=== PATIENT | male | born 1985 | race Two or more races ===

== ENCOUNTER 2018-01-09 09:23 | Day surgery (SDC) | payer OTHER, MEDICAID ==
[2018-01-09] MEDS ORDERED: oxyCODONE 5 MG TABLET PO STA (10:21)
--- NOTE | 2018-01-09 10:30 | ED Physician Documentation ---
History of Present Illness - Stated complaint Stated Complaint: GROIN PX - Chief complaint Chief Complaint: Abd Pain - Additonal information Additional information: hx from pt 32 male developed L groin pain a year ago with lifting got better then re-aagrevated lifting a few days ago pain and swelling to L inguinal and scrotal region, he cannot reduce the swelling which he used to be able to do, the pain is severe no fever no NV is having BM no diff with urination no numbness or weakness ate coffee and cookies for breakfast this AM Review of Systems Constitutional: denies: Fever Cardiac: denies: Chest pain / pressure Respiratory: denies: Dyspnea GI: denies: Abdominal Pain, Nausea, Vomiting, Constipation, Diarrhea : reports: Other (inguinal scrotal pain) Endocrine: denies: Easy bruising / bleeding Immunocompromised: denies: Immunocompromised PD PAST MEDICAL HISTORY - Allergies Allergies/Adverse Reactions: Allergies Allergy/AdvReac Type Severity Reaction Status Date / Time No Known Drug Allergies Allergy Verified 01/09/18 09:39 PD ED PE NORMAL - Vitals Vital signs reviewed: Yes - General General: Other (uncomfortable) - Neck Neck: Supple, no meningeal sign - Cardiac Cardiac: RRR - Respiratory Respiratory: No respiratory distress - Abdomen Abdomen: Soft, Non tender, Other (no pulsatile mass) - Male Male : Other (L inguinal swelling extending into scrotum c/w inguinal hernia, unanle to reduce, very painful) - Derm Derm: Normal color Results - Vitals Vitals: Vital Signs - 24 hr 01/09/18 01/09/18 01/09/18 09:35 12:15 13:09 Temperature 36.2 C L 36.5 C Heart Rate 88 74 64 Respiratory 16 18 18 Rate Blood Pressure 143/73 H 138/74 H 107/66 O2 Saturation 100 100 98 01/09/18 01/09/18 01/09/18 16:47 16:49 16:54 Temperature 37.7 C H Heart Rate 86 84 85 Respiratory 13 15 15 Rate Blood Pressure 105/76 124/67 121/67 O2 Saturation 96 99 96 01/09/18 01/09/18 01/09/18 16:59 17:03 17:08 Temperature 37.5 C Heart Rate 84 81 96 Respiratory 15 14 16 Rate Blood Pressure 126/68 121/73 125/78 O2 Saturation 97 98 98 01/09/18 01/09/18 01/09/18 17:14 17:19 17:24 Temperature Heart Rate 88 76 82 Respiratory 16 15 13 Rate Blood Pressure 129/73 118/72 126/71 O2 Saturation 95 95 95 01/09/18 01/09/18 01/09/18 17:34 17:42 17:49 Temperature 37 C Heart Rate 83 85 80 Respiratory 14 16 16 Rate Blood Pressure 124/74 124/77 132/81 H O2 Saturation 94 98 95 01/09/18 18:01 Temperature Heart Rate 85 Respiratory 14 Rate Blood Pressure 124/89 H O2 Saturation 96 Oxygen O2 Source Room air - Labs Labs: Laboratory Tests 01/09/18 01/09/18 12:02 12:02 WBC 12.5 H RBC 5.51 Hgb 15.5 Hct 45.2 MCV 82.0 MCH 28.2 MCHC 34.4 RDW 13.9 Plt Count 188 MPV 9.0 Neut # (Auto) 8.4 H Lymph # (Auto) 2.7 Garrett # (Auto) 1.2 H Eos # (Auto) 0.2 Baso # (Auto) 0.0 Absolute Nucleated RBC 0.00 Nucleated RBC % 0.0 Sodium 138 Potassium 3.5 Chloride 103 Carbon Dioxide 25 Anion Gap 10.0 BUN 18 Creatinine 0.7 Estimated GFR (MDRD) 132 Glucose 92 Calcium 9.0 PD MEDICAL DECISION MAKING - ED course ED course: even after pain meds unable to fully reduce (out of scrotum but still inguinal pain and swelling) = incarerated hernia spoke to miko Sales approx 1130 is in OR came to see pt approx 1230 and will take to OR today - Sepsis Event Vital Signs: Vital Signs - 24 hr 01/09/18 01/09/18 01/09/18 09:35 12:15 13:09 Temperature 36.2 C L 36.5 C Heart Rate 88 74 64 Respiratory 16 18 18 Rate Blood Pressure 143/73 H 138/74 H 107/66 O2 Saturation 100 100 98 01/09/18 01/09/18 01/09/18 16:47 16:49 16:54 Temperature 37.7 C H Heart Rate 86 84 85 Respiratory 13 15 15 Rate Blood Pressure 105/76 124/67 121/67 O2 Saturation 96 99 96 01/09/18 01/09/18 01/09/18 16:59 17:03 17:08 Temperature 37.5 C Heart Rate 84 81 96 Respiratory 15 14 16 Rate Blood Pressure 126/68 121/73 125/78 O2 Saturation 97 98 98 01/09/1818 01/09/18 17:14 17:19 17:24 Temperature Heart Rate 88 76 82 Respiratory 16 15 13 Rate Blood Pressure 129/73 118/72 126/71 O2 Saturation 95 95 95 01/09/18 01/09/18 01/09/18 17:34 17:42 17:49 Temperature 37 C Heart Rate 83 85 80 Respiratory 14 16 16 Rate Blood Pressure 124/74 124/77 132/81 H O2 Saturation 94 98 95 01/09/18 18:01 Temperature Heart Rate 85 Respiratory 14 Rate Blood Pressure 124/89 H O2 Saturation 96 Oxygen O2 Source Room air Departure - Departure Disposition: ED Transfer to [facility] Clinical Impression: Incarcerated inguinal hernia Condition: Good Discharge Date/Time: 01/09/18 14:32
[2018-01-09] MEDS ORDERED: SODIUM CHLORIDE 0.9% 1,000 ML IV ONE (11:18)
[2018-01-09] MEDS ORDERED: ACETAMINOPHEN 1,000 MG/100 ML 100 ML IV STA (11:18)
[2018-01-09 12:12] LABS: BASOPHILS % (AUTO) 0.3 %; EOSINOPHILS # (AUTO) 0.2 10^3/uL (0.0-0.7); EOSINOPHILS % (AUTO) 1.9 %; HGB - HEMOGLOBIN 15.5 g/dL (14.0-18.0); LYMPHOCYTES # (AUTO) 2.7 10^3/uL (1.5-3.5); LYMPHOCYTES % (AUTO) 21.7 %; MEAN CORPUSCULAR HEMOGLOBIN 28.2 pg (27.0-31.0); MEAN CORPUSCULAR HGB CONC 34.4 g/dL (32.0-36.0); MONOCYTES # (AUTO) 1.2 10^3/uL (0.0-1.0); MONOCYTES % (AUTO) 9.2 %; NEUTROPHILS # (AUTO) 8.4 10^3/uL (1.5-6.6); NEUTROPHILS % (AUTO) 66.9 %; PLT - PLATELET COUNT 188 10^3/uL (130-450); RED BLOOD COUNT 5.51 10^6/uL (4.70-6.10); RED CELL DISTRIBUTION WIDTH 13.9 % (12.0-15.0); WHITE BLOOD COUNT 12.5 x10^3/uL (4.8-10.8)
[2018-01-09 12:17] LABS: CREATININE 0.7 mg/dL (0.6-1.2)
--- NOTE | 2018-01-09 12:35 | CONSULTATION NOTE ---
Referring Provider Name of Referring Provider:: Dr. Solomon Consult Date: 01/09/18 Chief Complaint - Chief Complaint Chief Complaint: left groin pain History of Present Illness - Admitted From Admitted From:: ER - History Obtained From Records Reviewed: yes History obtained from: pt, Exam Limitations: pt has limited Czech skills - History of Present Illness HPI Comment/Other: 32 yo male with 48 hour hx of progressively worsening left groin pain without associated N/V, fever/chills, change in bowel habits or urination. Because of worsening pain, he presented to the ER today. Hx milder similar sx one week ago while lifting heavy pots at work, and also 1 yr ago performing the same activity at work. No sx on right; no PH or FH of hernias. No recent wt changes, no melena/BRBPR. History - Past Medical History Cardiovascular: reports: None Respiratory: reports: None Endocrine/Autoimmune: reports: None GI: reports: None : reports: None Psych: reports: None Musculoskeletal: reports: None MRSA Hx?: No - Family & Social History Family History Comment/Other: neg for hernias Living arrangement: At home Living Situation: With family - Substance History Use: Uses substance without health or social issues: NONE Abuse: Recurrent use of substance despite neg consequences: NONE Dependence: Experiences withdrawal or developed tolerances: NONE - POLST Patient has POLST: No POLST Status: Full Code Meds/Allgy - Allergies Allergies/Adverse Reactions: Allergies Allergy/AdvReac Type Severity Reaction Status Date / Time No Known Drug Allergies Allergy Verified 01/09/18 09:39 Review of Systems - Constitutional Constitutional: denies: Fever, Chills, Weight gain, Weight loss - Cardiovascular Cariovascular: denies: Chest pain - Respiratory Respiratory: denies: Cough, Sputum production, Wheezing - Gastrointestinal Gastrointestinal: denies: Abdominal pain, Constipation, Diarrhea, Change in bowel habits, Rectal bleeding, Black stools, Bloody stools, Nausea, Vomiting, Coffee grounds emesis - Genitourinary Genitourinary: denies: Dysuria, Frequency, Urgency, Hematuria - Hematologic/Lymphatic Hematologic/Lymphatic: denies: Bruising, Bleeding tendencies - All Other Systems All Other Systems: reports: Reviewed and negative Exam - Vital Signs Reviewed Vital Signs: Yes Vital Signs: Vital Signs x48h Temp Pulse Resp BP Pulse Ox 01/09/18 12:15 74 18 138/74 H 100 01/09/18 09:35 36.2 C L 88 16 143/73 H 100 - Physical Exam General Appearance: positive: Alert, Moderate distress Eyes Bilateral: positive: Conjunctivae nml, No scleral icterus ENT: positive: Pharynx nml, No signs of dehydration. negative: Pharyngeal erythema Neck: positive: Nml inspection, No JVD, Trachea midline. negative: Lymphadenopathy (R), Lymphadenopathy (L) Respiratory: positive: Chest non-tender, No respiratory distress, Breath sounds nml. negative: Wheezes, Rales, Rhonchi Cardiovascular: positive: Regular rate & rhythm, No murmur, No gallop Peripheral Pulses: positive: 2+ Abdomen: positive: Non-tender, No organomegaly, Nml bowel sounds, No distention. negative: Mass Skin: positive: Color nml, No rash, Warm, Dry Extremities: positive: Non-tender, Nml appearance, No pedal edema. negative: Calf tenderness Neurologic/Psychiatric: positive: Oriented x3 Comments/Other: GENIT: nl male phallus; no scrotal masses; left groin mass, exquisitely tender, partially reducible; no evidence of hernia on the right. Conclusion/Plan - Diagnosis Diagnosis: Incarcerated left inguinal hernia; no clinical evidence of strangulation or bowel obstruction. - Plan Plan: To OR for repair today. PAR conference with patient, discussed alternatives (observation) and risks (bleeding, infection, recurrence), consent obtained. - Lab Results Fish Bones: 01/09/18 12:02 01/09/18 12:02
--- NOTE | 2018-01-09 12:36 | ANESTHESIA ---
Pre-Anesthesia VS, & Labs - Diagnosis Incarcerated inguinal hernia, left - Procedure Left incarcerated inguinal hernia repair Vital Signs: Temp Pulse Resp BP Pulse Ox 36.2 C L 74 18 138/74 H 100 01/09/18 09:35 01/09/18 12:15 01/09/18 12:15 01/09/18 12:15 01/09/18 12:15 Height 5 ft 7 in Weight (kg) 88.904 kg Body Mass Index 30.7 - NPO Other (Coffee, cookie at 0730) - Lab Results Lab results reviewed: Yes Fish Bones: 01/09/18 12:02 01/09/18 12:02 Home Medications and Allergies Allergies/Adverse Reactions: Allergies Allergy/AdvReac Type Severity Reaction Status Date / Time No Known Drug Allergies Allergy Verified 01/09/18 09:39 Anes History & Medical History - Anesthetic History Anesthesia Complications: reports: No previous complications Family history of Anesthesia Complications: Denies Family history of Malignant Hyperthermia: Denies - Medical History Cardiovascular: reports: None Pulmonary: reports: None Gastrointestinal: reports: None Urinary: reports: None Neuro: reports: None Musculoskeletal: reports: None Endocrine/Autoimmune: reports: None Blood Disorders: reports: None Skin: reports: None Smoking Status: Never smoker Psychosocial: reports: No issues indicated Exam General: Alert, Oriented x3 Dental: WNL Mouth Opening: Greater than 4 Fingerbreadths Neck Mobility: Normal Mallampati classification: II Thyromental Distance: greater than 6 cm Respiratory: Lungs clear Cardiovascular: Regular rate Neurological: Normal speech Mental/Cognitive Status: Alert/Oriented X3 Cognitive Status: Within normal limits Plan Anesthesia Type: General Consent for Procedure(s) Verified and Reviewed: Yes Code Status: Attempt Resuscitation ASA classification: 1-Healthy patient Is this case an emergency?: Yes
[2018-01-09] MEDS ORDERED: BUPIVACAINE 0.5%-EPI 1:200000 PF 30 ML VIAL ONE (14:15)
[2018-01-09] MEDS ORDERED: SODIUM CHLORIDE 0.9% 10 ML VIAL IV ONE (14:30)
[2018-01-09] MEDS ORDERED: MIDAZOLAM 2 MG/2 ML VIAL IVP ONE (14:30)
[2018-01-09] MEDS ORDERED: PROPOFOL 200 MG/20 ML VIAL IVP ONE (14:30)
[2018-01-09] MEDS ORDERED: LIDOCAINE-MPF 2% 5 ML VIAL IM ONE (14:30)
[2018-01-09] MEDS ORDERED: fentaNYL 100 MCG/2 ML VIAL IVP ONE (14:30)
[2018-01-09] MEDS ORDERED: KETOROLAC 30 MG/ML VIAL IVP ONE (14:30)
[2018-01-09] MEDS ORDERED: ONDANSETRON 4 MG/2 ML VIAL IVP ONE (14:30)
[2018-01-09] MEDS ORDERED: DEXAMETHASONE 4 MG/ML VIAL IVP ONE (14:30)
[2018-01-09] MEDS ORDERED: ceFAZolin 1 GM VIAL IV ONE (14:30)
[2018-01-09] MEDS ORDERED: BUPIVACAINE 0.5%-EPI 1:200000 PF 30 ML VIAL SUBQ ONE (15:01)
[2018-01-09] MEDS ORDERED: LACTATED RINGERS 1,000 ML IV ONE ×2 (16:47→17:27)
[2018-01-09 18:03] VITALS: BP 124/89
[2018-01-09] MEDS ORDERED: oxyCODONE 5 MG TABLET PO PRN (18:03)
[2018-01-09] MEDS ORDERED: ONDANSETRON 4 MG/2 ML VIAL IVP PRN (18:04)
[2018-01-09] MEDS ORDERED: LACTATED RINGERS 1,000 ML IV SCH (19:00)
--- NOTE | 2018-01-10 05:45 | OPERATIVE REPORT ---
DATE OF SERVICE: 01/09/2018 Physician: Ricardo Sales MD PREOPERATIVE DIAGNOSIS: Incarcerated left inguinal hernia. POSTOPERATIVE DIAGNOSIS: Incarcerated left inguinal hernia. PROCEDURE PERFORMED: Open repair of incarcerated left inguinal hernia with prosthetic mesh implantat ion. ANESTHESIA: General endotracheal by Ariel Hayes CRNA. SURGEON: Ricardo Sales MD ESTIMATED BLOOD LOSS: 20 mL COMPLICATIONS: None. FINDINGS: A very large, indirect, left inguinal hernia was present, extending into the scrotum and c ontaining viable omentum. There was no evidence of direct or femoral hernia. INDICATIONS FOR PROCEDURE: The patient is a 32-year-old gentleman with a 48-hour history of progress ively worsening left groin pain associated with a partially reducible exquisitely tender mass in the left groin, extending into the left scrotum. Findings were consistent with an acutely incarcerated l eft inguinal hernia, and he was advised to undergo emergent repair. There was no clinical evidence o f strangulation or bowel obstruction. TECHNIQUE: After informed consent, the patient was taken to the operating room and was placed under general endotracheal anesthesia. Preoperative preparation included application of sequential calf co mpression boots and administration of 2 grams of cefazolin intravenously within an hour of the incisi on. His left groin was clipped and prepared with ChloraPrep solution and draped in the usual sterile fashion. A transverse incision was made in the skin lines of the left groin, approximately 5 cm in length, and carried in subcutaneous tissues. Hemostasis achieved with electrocautery and 2-0 Vicryl ties. The incision was carried down to the subcutaneous tissues until external oblique aponeurosis was identifi ed and was incised along the lines of fibers, in such a manner as to open external ring and expose th e internal ring. The ilioinguinal nerve was seen to cross the inguinal canal transversely and was di vided to avoid entrapment and injury and to facilitate repair. The spermatic cord was mobilized and encircled with a [place] drain. The cord was carefully dissected, isolating a very large indirect sa c and dissecting it free from surrounding cord structures to the level of the internal ring. With Tr endelenburg position and general anesthesia with muscle relaxation, contents were able to be reduced. The sac was then twisted and doubly highly ligated with 2-0 silk suture ligatures. Excess hernia s ac was amputated and discarded. After the cord was skeletonized and the cord lipoma excised and disc arded, hemostasis was achieved. The wound was irrigated with antibiotic solution containing 1 gram o f cefazolin per 500 mL of normal saline and a [employer] PerFix plug and patch system was used to reconstru ct the inguinal floor. The plug was placed into the internal ring and secured in place with several 3-0 Prolene sutures. The patch, which had been soaked in antibiotic solution, was placed over the in guinal floor and secured in place with 3-0 Prolene sutures in a circumferential manner and in a dean nuous manner, suturing the mesh to the shelving edge of Poupart's ligament inferiorly and to the inte rnal oblique aponeurosis and muscle layer superolaterally and to the lateral border of the rectus she ath medially. Care was taken to avoid excessively tightening the patch around the cord at the level of the internal ring. After hemostasis was assured, the wound was then irrigated with antibiotic solution. Wound closure w as accomplished in layers using continuous 2-0 Vicryl to reapproximate the external oblique aponeuros is overlying the cord, followed by 3-0 Vicryl for Manuel's fascia and 4-0 Monocryl subcuticular skin closure, followed by Dermabond. Anesthesia was terminated and the patient transferred to the recover y room in satisfactory condition. Sponge and instrument counts correct x2. No drains were used. Ma rcaine 0.5%, 30 mL, with epinephrine was infiltrated into the incision to assist in postoperative ilya lgesia. TD: 01/09/2018 17:09
== END 2018-01-09 20:00 | disposition home or self-care (01) ==
LOC: ED 09:23 → SDS 12:15 → OBS 16:45 → SDS 20:00
PROVIDERS: ATTEND Internal Medicine Gastroenterology
PROC: 0YU60JZ Supplement Left Inguinal Region with Synthetic Substitute, Open Approach (ICD-10-PCS; principal; 2018-01-09 14:00)
DX: K40.90 Unilateral inguinal hernia, without obstruction or gangrene, not specified as recurrent (principal)
CPT/HCPCS: 36415; 49505; 80048; 85025; 96361; 96365; 99283; 99284; A9270; C1781; J0131; J7120; 1040M

== ENCOUNTER 2021-10-08 19:06 | Emergency (ER) | payer OTHER ==
[2021-10-08 19:28] VITALS: BP 140/86
--- NOTE | 2021-10-08 19:35 | ED Physician Documentation ---
PD HPI UPPER EXT INJURY - Stated complaint Stated Complaint: R ARM LAC - Chief complaint Chief Complaint: Laceration - History obtained from History obtained from: Patient - History of Present Illness Location: Right, Arm (in biceps area) Type of injury: Laceration (he was taking new knife from packaging and pulling it from plastic container, with the knife coming loose suddenly. The momentum of his pulling at it caused the knife to stab into right biceps area with laceration and bleeding.) Where injury occurred: Home Timing - onset: Today (shortly [employer]) Timing - details: Abrupt onset, Still present Worsened by: Moving, Palpating Associated symptoms: No: Weakness, Numbness Similar symptoms before: Has not had sx before Review of Systems Constitutional: denies: Fever, Chills Nose: denies: Rhinorrhea / runny nose, Congestion Throat: denies: Sore throat Respiratory: denies: Cough Skin: reports: Laceration (s) Neurologic: denies: Focal weakness, Numbness PD PAST MEDICAL HISTORY - Past Medical History Cardiovascular: None Respiratory: None Neuro: None Endocrine/Autoimmune: None GI: None : None Psych: None Musculoskeletal: None Derm: None - Past Surgical History Past Surgical History: No - Allergies Allergies/Adverse Reactions: Allergies Allergy/AdvReac Type Severity Reaction Status Date / Time No Known Drug Allergies Allergy Verified 10/08/21 19:22 - Social History Does the pt smoke?: No Smoking Status: Never smoker Does the pt drink ETOH?: No Does the pt have substance abuse?: No - Immunizations Immunizations are current?: Yes - POLST Patient has POLST: No POLST Status: Full Code PD ED PE NORMAL - Vitals Vital signs reviewed: Yes - General General: Alert and oriented X 3, No acute distress, Well developed/nourished - Derm Derm: Normal color, Warm and dry - Extremities Extremities: Other (right mid biceps area with laceration to fatty tissue that is 2.5 cm length. No FB, minimal bleeding at this time. ) - Neuro Neuro: Alert and oriented X 3, No motor deficit, No sensory deficit, Normal speech Results - Vitals Vitals: Vital Signs - 24 hr 10/08/21 19:19 Temperature 36.5 C Heart Rate 67 Respiratory 14 Rate Blood Pressure 140/86 H O2 Saturation 98 Oxygen O2 Source Room air Procedures - Laceration (location) right upper arm Length in cm: 2.5 Wound type: Linear, Into subcut fat, Clean Neurovascular status: Sensory intact, Motor intact, Vascular intact Tendon involvement: Tendon intact Anesthesia: Lidocaine 1% with epi Wound preparation: Irrigated copiously NS, Wound explored, To the base Deep layer closure: Vicryl, size #-0 - enter number (4), # sutures - enter number (2) Skin layer closure: Nylon, Running, Size #-0 - enter number (4), Sutures - enter # (10) Other: Patient tolerated well, No complications, Neurovascular intact, Dressing applied, Tetanus UTD Departure - Departure Disposition: 01 Home, Self Care Clinical Impression: Laceration of right upper arm Condition: Stable Instructions: ED Laceration All Comments: It is okay to wash and shower. Clean off the wound twice a day with soap and water, or peroxide and water. Apply some antibiotic ointment to it to keep it moist. Also to watch for signs of infection such as purulence, redness or increasing pain. Return to your primary care or the ER at the specified time for suture removal. Suture removal 9 or 10 days. Tylenol ibuprofen as needed. Expect some soreness with lifting and range of motion as you likely did puncture into the biceps muscle. You should be able to heal okay with chest activity as tolerated. Discharge Date/Time: 10/08/21 21:14
== END 2021-10-08 21:14 | disposition home or self-care (01) ==
LOC: ED 19:06
DX: S41.111A Laceration without foreign body of right upper arm, initial encounter (principal); W26.0XXA Contact with knife, initial encounter
CPT/HCPCS: 12001; 99281

== ENCOUNTER 2023-11-09 20:54 | Emergency (ER) | payer OTHER ==
--- NOTE | 2023-11-09 21:18 | ED Physician Documentation ---
PD HPI ABD PAIN - Stated complaint Stated Complaint: ABD PX - Chief complaint Chief Complaint: Abd Pain - History obtained from History obtained from: Patient - Additional information Additional information: Otherwise healthy 38-year-old gentleman presents with a complaint of 2 days of waxing waning and somewhat intermittent epigastric pain that does not seem specifically related to eating. It is not associated with nausea, vomiting, diarrhea or other changes in his bowel movements. He has never had this before. No history of abdominal surgeries. PD PAST MEDICAL HISTORY - Past Medical History Past Medical History: No Cardiovascular: None Respiratory: None Neuro: None Endocrine/Autoimmune: None GI: None : None Psych: None Musculoskeletal: None Derm: None - Past Surgical History Past Surgical History: No - Present Medications Home Medications: Ambulatory Orders Medication Instructions Recorded Confirmed Omeprazole 40 mg PO DAILY #30 cap 11/09/23 - Allergies Allergies/Adverse Reactions: Allergies Allergy/AdvReac Type Severity Reaction Status Date / Time No Known Drug Allergies Allergy Verified 11/09/23 21:08 - Social History Does the pt smoke?: No Smoking Status: Never smoker Does the pt drink ETOH?: No Does the pt have substance abuse?: No - Immunizations Immunizations are current?: Yes - POLST Patient has POLST: No POLST Status: Full Code PD ED PE NORMAL - Vitals Vital signs reviewed: Yes - General General: Alert and oriented X 3, No acute distress - Abdomen Abdomen: Normal bowel sounds, Soft, Other (Minimal tenderness in the epigastrium, no tenderness in the right upper quadrant. Negative Ortiz sign. No lower abdominal tenderness.) - Neuro Neuro: Alert and oriented X 3 Results - Vitals Vitals: Vital Signs - 24 hr 11/09/23 20:56 Temperature 36.8 C Heart Rate 79 Respiratory 16 Rate O2 Saturation 99 Oxygen O2 Source Room air - Labs Labs: Laboratory Tests 11/09/23 11/09/23 21:25 21:25 WBC 10.2 RBC 5.59 Hgb 15.7 Hct 46.6 MCV 83.4 MCH 28.1 MCHC 33.7 RDW 13.3 Plt Count 184 MPV 11.0 Neut # (Auto) 5.8 Lymph # (Auto) 3.2 [place] # (Auto) 0.8 Eos # (Auto) 0.2 Baso # (Auto) 0.0 Absolute Nucleated RBC 0.00 Nucleated RBC % 0.0 Sodium 139 Potassium 3.6 Chloride 108 Carbon Dioxide 24 Anion Gap 7.0 BUN 17 Creatinine 0.7 Estimated GFR (MDRD) 127 Glucose 102 Calcium 9.4 Total Bilirubin 0.7 AST 19 ALT 19 Alkaline Phosphatase 112 Total Protein 7.0 Albumin 4.4 Globulin 2.6 Albumin/Globulin Ratio 1.7 Lipase 18 PD Medical Decision Making - ED course ED course: He presents with upper abdominal pain, no clear trigger of eating. Minimally tender on exam but fairly benign. Seemingly gastritis. CBC and CMP were unremarkable. After the administration of a GI cocktail he was pain-free. Departure - Departure Disposition: Home, Self Care Clinical Impression: Gastritis Qualifiers: Gastritis type: unspecified gastritis Chronicity: acute Gastritis bleeding: without bleeding Qualified Code(s): K29.00 - Acute gastritis without bleeding Condition: Good Record reviewed to determine appropriate education?: Yes Instructions: ED PUD Vs Gastritis Prescriptions: Omeprazole 40 mg PO DAILY #30 cap Comments: The fact that she got better with the GI cocktail and the normal labs would strongly suggest that she probably have was called gastritis. There are some dietary suggestions that we would like you to follow, specifically minimize caffeine and nicotine. Open nonsteroidal anti-inflammatory drugs such as ibuprofen and Aleve. Call your doctor to arrange a follow-up appointment, make the next available appointment. In the interim, return anytime if worse or if n ew symptoms develop. Forms: PCP List
[2023-11-09] MEDS: MAG HYDROX/AL HYDROX/SIMETH 30 ML UDC PO STA (21:22)
[2023-11-09] MEDS: LIDOCAINE VISCOUS 2% 15 ML UDC MM STA (21:22)
[2023-11-09 21:30] LABS: BASOPHILS % (AUTO) 0.3 %; EOSINOPHILS # (AUTO) 0.2 10^3/uL (0.0-0.7); HCT - HEMATOCRIT 46.6 % (42.0-52.0); HGB - HEMOGLOBIN 15.7 g/dL (14.0-18.0); LYMPHOCYTES # (AUTO) 3.2 10^3/uL (1.5-3.5); LYMPHOCYTES % (AUTO) 31.1 %; MEAN CORPUSCULAR HEMOGLOBIN 28.1 pg (27.0-31.0); MEAN CORPUSCULAR HGB CONC 33.7 g/dL (32.0-36.0); MEAN CORPUSCULAR VOLUME 83.4 fL (80.0-94.0); MONOCYTES # (AUTO) 0.8 10^3/uL (0.0-1.0); MONOCYTES % (AUTO) 8.1 %; NEUTROPHILS # (AUTO) 5.8 10^3/uL (1.5-6.6); NEUTROPHILS % (AUTO) 57.4 %; PLT - PLATELET COUNT 184 10^3/uL (130-450); RED BLOOD COUNT 5.59 10^6/uL (4.70-6.10); RED CELL DISTRIBUTION WIDTH 13.3 % (12.0-15.0); WHITE BLOOD COUNT 10.2 x10^3/uL (4.8-10.8)
[2023-11-09 21:46] LABS: ALBUMIN 4.4 g/dL (3.2-5.5); ALBUMIN/GLOBULIN RATIO 1.7 (1.0-2.2); BILIRUBIN,TOTAL 0.7 mg/dL (0.2-1.0); CALCIUM 9.4 mg/dL (8.5-10.3); CREATININE 0.7 mg/dL (0.6-1.3); POTASSIUM 3.6 mmol/L (3.5-4.5)
[2023-11-09] MEDS: PANTOPRAZOLE 40 MG TABLET PO STA (22:00)
[2023-11-09 22:11] VITALS: BP 128/76; O2SAT 96
== END 2023-11-09 22:09 | disposition home or self-care (01) ==
LOC: ED 20:54
DX: K29.00 Acute gastritis without bleeding (principal)
CPT/HCPCS: 36415; 80053; 83690; 85025; 99283; A9270